=== PATIENT | male | born 1990 | race African-American/Black ===

== ENCOUNTER 2016-12-02 11:41 | Emergency (ER) | payer OTHER ==
[~2016-12-02] VITALS: Ht 170.2 cm; Wt 61.2 kg
[~2016-12-02 11:41] MED LIST: BENZ200C39 PO; PRED20TA PO; PROAIR HFA8.5 GM INH
[2016-12-02 12:18] VITALS: BP 115/57
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
[2016-12-02] MEDS ORDERED: METH-37 PO (14:35)
[2016-12-02] MEDS ORDERED: TRAM-29 PO (14:35)
== END 2016-12-02 14:51 | disposition home or self-care (01) ==
LOC: ER 11:41
DX: M54.2 Cervicalgia (principal); R51 Headache; M54.9 Dorsalgia, unspecified; V49.59XA Passenger injured in collision with other motor vehicles in traffic accident, initial encounter; Y93.89 Activity, other specified; Y92.89 Other specified places as the place of occurrence of the external cause; Y99.8 Other external cause status
CPT/HCPCS: 72040; 72072; 72100; 72125; 99284

== ENCOUNTER 2019-07-26 17:01 | Emergency (ER) | payer OTHER ==
[~2019-07-26] VITALS: Ht 170.2 cm; Wt 61.2 kg
[~2019-07-26 17:01] MED LIST changes: +ALBU2.5V8 INH; -BENZ200C39 PO; +BENZ200C47 PO; +METH-37 PO; -PROAIR HFA8.5 GM INH; +TRAM-48 PO
[2019-07-26 17:21] VITALS: BP 113/54
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
[2019-07-26] MEDS ORDERED: NAPR-683 PO (18:07)
[2019-07-26] MEDS ORDERED: METH-38 PO (18:07)
== END 2019-07-26 18:20 | disposition home or self-care (01) ==
LOC: ER 17:01
DX: S39.012A Strain of muscle, fascia and tendon of lower back, initial encounter (principal); V89.2XXA Person injured in unspecified motor-vehicle accident, traffic, initial encounter; Y93.89 Activity, other specified; Y92.488 Other paved roadways as the place of occurrence of the external cause; Y99.8 Other external cause status
CPT/HCPCS: 72100; 99284